=== PATIENT | male | born 1945 | race Caucasian/White ===

== ENCOUNTER 2018-02-12 14:27 | Emergency (ER) | payer MEDICARE, BC ==
[~2018-02-12] VITALS: Ht 188 cm; Wt 113.6 kg
[2018-02-12 15:35] VITALS: BP 164/83
== END 2018-02-12 15:53 | disposition home or self-care (01) ==
LOC: ED 15:30
DX: M71.22 Synovial cyst of popliteal space [Baker], left knee (principal)
CPT/HCPCS: 99284